=== PATIENT | female | born 1985 | race Two or more races ===

== ENCOUNTER 2019-01-15 23:34 | Emergency (ER) | payer OTHER ==
[~2019-01-15] VITALS: Ht 165.1 cm; Wt 65.8 kg
--- NOTE | 2019-01-15 23:52 | NUR ---
BIBS. C/O "COUGH CONGESTION [id number]. HAVING L SHOULDER PAIN TODAY" -SOB AOX4. VSS. AMBULATORY
[2019-01-16] MEDS ORDERED: NAPROXEN 500 MG TABLET PO SCH
[2019-01-16] MEDS ORDERED: NAPROXEN 250 MG TABLET ONE (00:19)
[2019-01-16 00:42] VITALS: BP 141/93
== END 2019-01-16 00:43 | disposition home or self-care (01) ==
LOC: ER 23:38
DX: M94.0 Chondrocostal junction syndrome [Tietze] (principal)
CPT/HCPCS: 71045-TC